=== PATIENT | female | born 1990 | race Caucasian/White ===

== ENCOUNTER 2016-10-24 18:06 | Emergency (ER) | payer MEDICAID, OTHER ==
[~2016-10-24] VITALS: Ht 160 cm; Wt 63.9 kg
[~2016-10-24 18:06] MED LIST: PENI500T PO; SUCR1S PO; TRAM50 PO; Z.0.BCPILL PO
[2016-10-24 18:13] VITALS: BP 124/76; PULSE 83; RESP 16; TEMP 98; O2SAT 98
--- NOTE | 2016-10-24 18:26 | PD ---
HPI Chief Complaint: GI Complaint Time Seen by Provider: 18:19 Travel History International Travel<30 days: No Contact w/Intl Traveler<30days: No Traveled to known affect area: No History of Present Illness HPI This is a 26-year-old female who presents to the emergency department with nausea and vomiting that's been present for 3 days, constant, worsening, associated with epigastric moderate abdominal pain described as cramping and nonradiating. She denies any associated fevers, chills, diarrhea, vaginal discomfort, dysuria, or back pain. She's never had symptoms like this before. She denies alcohol use and says she just finished her menstrual cycle. She says her last bowel movement was 2 days ago and was normal. [facility] Past Medical History Medical History: Denies Significant Hx Diminished Hearing: No Tetanus Vaccination: > 5 Years Influenza Vaccination: No ?: Not LMP: 1 day ago Past Surgical History Surgical History: No Previous Surgery Social History Alcohol Use: No Tobacco Use: No Substance Use: No Allergies-Medications (Allergen,Severity, Reaction): Coded Allergies: No Known Allergies (Verified , 10/24/16) Reported Meds & Prescriptions Reported Meds & Active Scripts Active No Active Prescriptions or Reported Medications Review of Systems Except as stated in HPI: all other systems reviewed are Neg Physical Exam Narrative GENERAL uncomfortable appearing SKIN: Focused skin assessment warm and dry. HEAD: Atraumatic. Normocephalic. EYES: Eyes are sunken ENT: Dry mucous membranes NECK: Trachea midline. CARDIOVASCULAR: Regular rate and rhythm. No murmur appreciated. RESPIRATORY: Clear to auscultation. Breath sounds equal bilaterally. GASTROINTESTINAL: Abdomen soft, non-tender, nondistended. MUSCULOSKELETAL: No obvious deformities. NEUROLOGICAL: Awake and alert. No obvious cranial nerve deficits. Moving all extremities. PSYCHIATRIC: Appropriate mood and affect; insight and judgment normal. Data Data Last Documented VS Vital Signs Date Time Temp Pulse Resp B/P Pulse Ox O2 Delivery O2 Flow Rate FiO2 10/24/16 18:32 98 Room Air 10/24/16 18:13 98.0 83 16 124/76 Orders Complete Blood Count With Diff (10/24/16 18:23) Comprehensive Metabolic Panel (10/24/16 18:23) Lipase (10/24/16 18:23) Urinalysis - C+S If Indicated (10/24/16 18:23) Ct Abd/Pel W Iv Contrast(Rout) (10/24/16 18:23) Iv Access Insert/Monitor (10/24/16 18:23) Ecg Monitoring (10/24/16 18:23) Oximetry (10/24/16 18:23) Sodium Chloride 0.9% Flush (Ns Flush) (10/24/16 18:30) Ed Urine Pregnancytest Poc (10/24/16 18:23) Sodium Chlor 0.9% 1000 Ml Inj (Ns 1000 M (10/24/16 18:30) Ondansetron Inj (Zofran Inj) (10/24/16 18:30) Electrocardiogram (10/24/16 ) MDM Medical Decision Making Medical Screen Exam Complete: Yes Emergency Medical Condition: Yes Interpretation(s) Afebrile, no tachycardia, normotensive Differential Diagnosis Gastritis, gastroenteritis, cholelithiasis, cholecystitis, pancreatitis Narrative Course This is a 26-year-old female who presents to the emergency department with vomiting. She appears dehydrated and unwell and is actively vomiting in the emergency Department. I don't have a great explanation for why she is having vomiting. Labs will be obtained and a CT will be obtained. Patient's disposition will be made by Dr. Osman pending results. Scripts No Active Prescriptions or Reported Meds Tammy Patel MD October 24, 2016 18:26
[2016-10-24] MEDS ORDERED: SODIUM CHLOR 0.9% 1000 ML INJ 1,000 ML IV ONE ×2 (18:30→19:30)
[2016-10-24] MEDS ORDERED: ONDANSETRON HCL 4 MG/2 ML VIAL IV PUSH ONE (18:30)
[2016-10-24] MEDS ORDERED: SODIUM CHLORIDE 0.9% FLUSH 10 ML FLUSH IV FLUSH PRN (18:30)
[2016-10-24 18:32] VITALS: O2SAT 98
[2016-10-24 18:48] LABS: AUTOMATED NEUTROPHIL # 8.4 TH/MM3 (1.8-7.7); BASOPHIL % 0.4 % (0.0-2.0); EOSINOPHIL # 0.1 TH/MM3 (0-0.4); EOSINOPHIL % 0.7 % (0.0-4.0); HEMATOCRIT 47.1 % (35.0-46.0); LYMPH % 16.6 % (9.0-44.0); LYMPHOCYTE # 1.7 TH/MM3 (1.0-4.8); MEAN CELL VOLUME 91.2 FL (80.0-100.0); MEAN CORPUSCULAR HEMOGLOBIN 29.8 PG (27.0-34.0); MEAN CORPUSCULAR HGB CONC 32.7 % (32.0-36.0); MONO % 2.6 % (0.0-8.0); NEUT % 79.7 % (16.0-70.0); PLATELET COUNT 339 TH/MM3 (150-450); RED BLOOD COUNT 5.17 MIL/MM3 (4.00-5.30); RED CELL DISTRIBUTION WIDTH 13.5 % (11.6-17.2); WHITE BLOOD COUNT 10.5 TH/MM3 (4.0-11.0)
[2016-10-24 18:53] LABS: CHLORIDE 104 MEQ/L (98-107); SODIUM (NA) 141 MEQ/L (136-145)
[2016-10-24 18:57] LABS: ANION GAP 13 MEQ/L (5-15); BICARBONATE 23.6 MEQ/L (21.0-32.0); BLOOD UREA NITROGEN 11 MG/DL (7-18)
[2016-10-24 18:59] LABS: ALT (GPT) 26 U/L (10-53)
[2016-10-24 19:00] LABS: AST (GOT) 16 U/L (15-37); GLOMERULAR FILTRATION RATE 60 ML/MIN (>89)
[2016-10-24 19:01] LABS: TOTAL BILIRUBIN ADULT 0.7 MG/DL (0.2-1.0)
[2016-10-24 19:03] LABS: ALKALINE PHOSPHATASE 74 U/L (45-117)
[2016-10-24 19:04] LABS: POTASSIUM 3.3 MEQ/L (3.5-5.1)
[2016-10-24 19:08] VITALS: BP 95/52; PULSE 51; RESP 18; O2SAT 99
[2016-10-24 19:13] LABS: HEMO FLAGS DIFF FINAL
[2016-10-24] MEDS ORDERED: POTASSIUM CHLOR 20 MEQ PREMIX 100 ML IV ONE (19:30)
--- NOTE | 2016-10-24 19:38 | PD ---
Physical Exam Narrative Received sign out from previous provider to follow up labs and reevaluate. 26yo F with nausea, vomiting and epigastric pain for 2 days. Pt was given NS IVF and zofran by previous provider. I reevaluated pt at bedside and abdominal pain and resolved. Abd is soft, NT/ND. No rebound tenderness or guarding. Pt is no longer nauseous. Labs reviewed, no leukocytosis. H/H elevated at 15.4/ 47.1 which is consistent with dehydration. K: 3.3, replaced with 20mEq KCl IV. Lipase low. Pt given another NS IVF. Xray abdomen unremarkable. I feel that base on my reevaluation, pt does not require a CT scan. Abdomen is benign. Pt feels better and is now tolerating PO. Wants to go home. Return precautions given. Data Data Last Documented VS Vital Signs Date Time Temp Pulse Resp B/P Pulse Ox O2 Delivery O2 Flow Rate FiO2 10/24/16 20:11 51 18 104/59 100 Room Air 10/24/16 18:13 98.0 Orders Complete Blood Count With Diff (10/24/16 18:23) Comprehensive Metabolic Panel (10/24/16 18:23) Lipase (10/24/16 18:23) Urinalysis - C+S If Indicated (10/24/16 18:23) Iv Access Insert/Monitor (10/24/16 18:23) Ecg Monitoring (10/24/16 18:23) Oximetry (10/24/16 18:23) Sodium Chloride 0.9% Flush (Ns Flush) (10/24/16 18:30) Ed Urine Pregnancytest Poc (10/24/16 18:23) Sodium Chlor 0.9% 1000 Ml Inj (Ns 1000 M (10/24/16 18:30) Ondansetron Inj (Zofran Inj) (10/24/16 18:30) Electrocardiogram (10/24/16 ) Potassium Chlor 20 Meq Premix (Kcl 20 Me (10/24/16 19:30) Sodium Chlor 0.9% 1000 Ml Inj (Ns 1000 M (10/24/16 19:30) Abdomen, Flat & Upright (10/24/16 ) Beta Hcg (Quant/Titer) (10/24/16 18:30) Labs Laboratory Tests Test 10/24/16 18:30 White Blood Count 10.5 TH/MM3 Red Blood Count 5.17 MIL/MM3 Hemoglobin 15.4 GM/DL Hematocrit 47.1 % Mean Corpuscular Volume 91.2 FL Mean Corpuscular Hemoglobin 29.8 PG Mean Corpuscular Hemoglobin 32.7 % Concent Red Cell Distribution Width 13.5 % Platelet Count 339 TH/MM3 Mean Platelet Volume 7.6 FL Neutrophils (%) (Auto) 79.7 % Lymphocytes (%) (Auto) 16.6 % Monocytes (%) (Auto) 2.6 % Eosinophils (%) (Auto) 0.7 % Basophils (%) (Auto) 0.4 % Neutrophils # (Auto) 8.4 TH/MM3 Lymphocytes # (Auto) 1.7 TH/MM3 Monocytes # (Auto) 0.3 TH/MM3 Eosinophils # (Auto) 0.1 TH/MM3 Basophils # (Auto) 0.0 TH/MM3 CBC Comment DIFF FINAL Differential Comment Sodium Level 141 MEQ/L Potassium Level 3.3 MEQ/L Chloride Level 104 MEQ/L Carbon Dioxide Level 23.6 MEQ/L Anion Gap 13 MEQ/L Blood Urea Nitrogen 11 MG/DL Creatinine 1.10 MG/DL Estimat Glomerular Filtration 60 ML/MIN Rate Random Glucose 135 MG/DL Calcium Level 9.9 MG/DL Total Bilirubin 0.7 MG/DL Aspartate Amino Transf 16 U/L (AST/SGOT) Alanine Aminotransferase 26 U/L (ALT/SGPT) Alkaline Phosphatase 74 U/L Total Protein 8.3 GM/DL Albumin 4.8 GM/DL Lipase 70 U/L Human Chorionic Gonadotropin, LESS THAN 1 Quant MIU/ML MDM Supervised Visit with BERTHA: No Diagnosis Primary Impression: Vomiting Qualified Code: R11.2 - Non-intractable vomiting with nausea, unspecified vomiting type Patient Instructions: General Instructions Departure Forms: Tests/Procedures Additional Instruction: Please follow up with your PMD in 3-7 days. Return to the ED if symptoms worsen. Med/Other Pt SpecificInfo: Prescription(s) given Scripts Ondansetron Odt (Zofran Odt)4 Mg Tab4 Mg SL Q12HR PRN (Nausea/Vomiting) #6 TAB Ref 0 Prov:Mayra Osman 10/24/16 Disposition: 01 DISCHARGE HOME Condition: Stable OsmanMayra DO October 24, 2016 19:38
--- NOTE | 2016-10-24 19:45 | RADHPO ---
EXAM DATE/TIME: 10/24/2016 19:24 [place] COMPARISON: No previous studies available for comparison. INDICATIONS : Vomiting for two days. MEDICAL HISTORY : None. SURGICAL HISTORY : None. ENCOUNTER: Initial ACUITY: 2 days PAIN SCORE: 0/10 LOCATION: abdomen. FINDINGS: Supine and upright views of the abdomen were performed. The abdominal bowel gas pattern is normal. No air fluid levels are seen. No abnormal masses, calcifications, or organomegaly is seen. The visu alized lower lungs are clear. No evidence of free intraperitoneal gas. The osseous structures are u nremarkable. CONCLUSION: Unremarkable exam. Sanjay Booker MD on October 24, 2016 at 19:43 Board Certified Radiologist. This report was verified electronically.
[2016-10-24 19:49] LABS: BETA HCG QUANT LESS THAN 1 MIU/ML (0-5)
[2016-10-24 20:11] VITALS: BP 104/59; PULSE 51; RESP 18; O2SAT 100
[2016-10-24] MEDS ORDERED: ZOFR4TAB3 SL (20:32)
[2016-10-24 21:13] VITALS: BP 105/59; PULSE 54; RESP 18; O2SAT 100
--- NOTE | 2016-10-25 19:41 | EKG ---
Date Performed: 10/24/2016 Time Performed: 18:45:06 PTAGE: 26 years EKG: Sinus bradycardia Normal ECG except for rate PREVIOUS TRACING : 08/19/2014 03.07 Compared to the previous tracing rate slower DOCTOR: Kuldip Leon Interpretating Date/Time 10/25/2016 19:40:16
== END 2016-10-24 21:59 | disposition home or self-care (01) ==
LOC: PHED 18:06
DX: R11.2 Nausea with vomiting, unspecified (principal); R10.13 Epigastric pain; E86.0 Dehydration
CPT/HCPCS: 74020; 80053; 83690; 84702; 85025; 93005; 96361; 96365; 96366; 96375; 99285; J2405; J3480; J7030